=== PATIENT | female | born 1950 | race Caucasian/White ===

== ENCOUNTER → 2019-04-05 | Outpatient (CLI) | payer MEDICARE, OTHER ==
[2019-04-05 13:04] LABS: African American GFR (CKD) >90 (>60 ml/min/1.73 sqM); Blood Urea Nitrogen 12 mg/dL (7-17); Non-African American GFR(CKD) >90 (>60 ml/min/1.73 sqM)
--- NOTE | 2019-04-05 14:42 | CT ---
EXAMINATION TYPE: CT abdomen pelvis w con DATE OF EXAM: 04/05/2019 HISTORY: Right flank pain and hematuria. CT DLP: 2366.5mGycm Automated Exposure Control for Dose Reduction was Utilized. CONTRAST: CT scan of the abdomen and pelvis is performed with oral and with IV Contrast, patient injected with 100ml mL of Isovue 300. COMPARISON: None FINDINGS: LUNG BASES: Patchy left basilar linear scarring and/or atelectasis. LIVER/GB: Cholecystectomy clips. PANCREAS: No significant abnormality is seen. SPLEEN: No significant abnormality is seen. ADRENALS: No significant abnormality is seen. KIDNEYS: Symmetric cortical medullary uptake and excretion is seen bilaterally. Left side shows asymm etric mild to minimal left-sided hydronephrosis and areas of mild hydroureter without obstructing breezy culus clearly seen. No distal hydroureter. No Intraluminal calculus in satisfactorily distended bladder. There are 2 adjacent calculi lower pole right kidney coronal image 79 thought Present measuring up to 5 mm long axis versus lobulated larger calculus. No right-sided hydronephrosis. BOWEL: Oral contrast reaches level proximal transverse colon. No suspicious small or large bowel dila tation. Occasional diverticula in the left colon without CT evidence for acute diverticulitis. Incide ntal normal gas-filled appendix from cecum right lower quadrant extending posteriorly. UTERUS/ADNEXA: Anteverted uterus with ovaries normal in size near axial image 58 and 59. Single left- sided pelvic phlebolith axial image 75. LYMPH NODES: No greater than 1cm abdominal or pelvic lymph nodes are appreciated. OSSEOUS STRUCTURES: Moderate multilevel vacuum disc phenomenon and disc space narrowing with multilev el spurring most prominent upper lumbar levels. Multilevel spondylolisthesis and posterior spur disc complexes effacing the anterior thecal sac throughout the thoracolumbar spine. Spinal canal stenosis L4-L5 level noted axial image 48 with facet arthropathy also seen. Moderate narrowing and spurring of both hip joints. OTHER: No significant additional abnormality is seen. IMPRESSION: Suspect 2 nonobstructing right renal calculi up to 5 mm in size lower pole level. No righ t-sided hydronephrosis or obstructing ureteral calculi seen bilaterally. Mild to minimal left-sided h ydronephrosis is nonspecific without delayed excretion.
== END | disposition home or self-care (01) ==
LOC: RADCTMAIN 12:18
PROVIDERS: ATTEND Urology
DX: R31.0 Gross hematuria (principal)
CPT/HCPCS: 82565; 84520; 74177; 36415; Q9967